=== PATIENT | female | born 1970 | race Caucasian/White ===

== ENCOUNTER 2018-02-18 20:10 | Emergency (ER) | payer OTHER ==
--- NOTE | 2018-02-18 21:04 | EDM.PDOC ---
ED HPI GENERAL MEDICAL PROBLEM - General Chief Complaint: Respiratory Problem Stated Complaint: WEAKNESS Time Seen by Provider: 02/18/18 21:00 Source of Information: Reports: Patient History Limitations: Reports: No Limitations - History of Present Illness INITIAL COMMENTS - FREE TEXT/NARRATIVE: Patient presents with cough x 6 weeks productive of green sputum. Has not sought medical attention until today. Complains of mid back pain and generalized weakness x several days. Denies SOB. Duration: Week(s): (6) - Related Data Allergies Allergy/AdvReac Type Severity Reaction Status Date / Time No Known Allergies Allergy Verified 02/18/18 20:46 Home Meds: Home Meds Azithromycin [Zithromax] 250 mg PO DAILY #4 tab 02/18/18 [Rx] Codeine/guaiFENesin [guaiFENesin-Codeine Syrup] 10 ml PO Q4H PRN #240 ml [Rx] Past Medical History - Past Health History Medical/Surgical History: Denies Medical/Surgical History Social & Family History - Tobacco Use Smoking Status *Q: Never Smoker ED ROS GENERAL - Review of Systems Review Of Systems: See Below Constitutional: Reports: Chills HEENT: Reports: No Symptoms Respiratory: Reports: Cough Cardiovascular: Reports: No Symptoms Endocrine: Reports: No Symptoms GI/Abdominal: Reports: No Symptoms : Reports: No Symptoms Musculoskeletal: Reports: Back Pain (mid) Skin: Reports: No Symptoms Neurological: Reports: Headache (sharp left sided head pain when lays down at night, no headache at this time) Psychiatric: Reports: No Symptoms Hematologic/Lymphatic: Reports: No Symptoms Immunologic: Reports: No Symptoms ED EXAM, GENERAL - Physical Exam Exam: See Below Exam Limited By: No Limitations General Appearance: Alert, WD/WN, No Apparent Distress Ears: Normal External Exam, Normal Canal, Normal TMs Nose: Normal Inspection Throat/Mouth: Normal Inspection, No Airway Compromise Head: Atraumatic, Normocephalic Neck: Supple, Full Range of Motion Respiratory/Chest: No Respiratory Distress, Lungs Clear, Normal Breath Sounds Cardiovascular: Regular Rate, Rhythm, No Murmur Back Exam: Vertebral Tenderness (moderate mid thoracic vertebral tenderness) Neurological: Alert, No Motor/Sensory Deficits Psychiatric: Normal Affect, Normal Mood Skin Exam: Warm, Dry, Intact Course - Vital Signs Last Recorded V/S: Last Vital Signs Temp 36.5 C 02/18/18 20:20 Pulse 71 02/18/18 20:20 Resp 18 02/18/18 20:20 BP 151/89 H 02/18/18 20:20 Pulse Ox 94 L 02/18/18 20:20 - Orders/Labs/Meds Orders: Active Orders 24 hr Category Date Time Status CXR [Chest 2V] [CR] Stat Exams 02/18/18 21:00 Taken - Radiology Interpretation Free Text/Narrative:: CXR: NAD Departure - Departure Time of Disposition: 21:52 Disposition: Home, Self-Care 01 Condition: Good Clinical Impression: Bronchitis, Mid-back pain, acute - Discharge Information *PRESCRIPTION DRUG MONITORING PROGRAM REVIEWED*: No *COPY OF PRESCRIPTION DRUG MONITORING REPORT IN PATIENT EVA: Not Applicable Prescriptions: Azithromycin [Zithromax] 250 mg PO DAILY #4 tab Codeine/guaiFENesin [guaiFENesin-Codeine Syrup] 10 ml PO Q4H PRN #240 ml PRN Reason: Cough Instructions: Acute Bronchitis, Adult, [id number], Back Pain, Adult, Easy-to- Read Referrals: PCP,Not In Area [Primary Care Provider] - Forms: ED Department Discharge Additional Instructions: Fill prescriptions for Zithromax and Robitussin AC and take as directed. Take OTC Ibuprofen as needed for back pain. Rest, drink plenty of fluids. Follow up with your primary physician in 2-3 days. Return to the ER as needed. - My Orders Last 24 Hours: My Active Orders 02/18/18 21:00 CXR [Chest 2V] [CR] Stat - Assessment/Plan Last 24 Hours: My Active Orders 02/18/18 21:00 CXR [Chest 2V] [CR] Stat
[2018-02-18] MEDS ORDERED: Azithromycin 500 MG Tab PO ONE (21:54)
--- NOTE | 2018-02-20 08:28 | CR ---
INDICATION: Cough. CHEST: Two PA views and a lateral view of the chest were obtained 02/18/2018 - no comparisons are available. The diaphragm leaves appear to be slightly flattened with prominent AP diameter and mild hyperaeration, suggesting the possibility of COPD - correlate clinically. A small to moderate sized fixed hiatal hernia is suggested. The heart is normal in size and shape. The aorta is somewhat tortuous with suggestion of minimal calcification in the arch. A definite active infiltrate or effusion was not identified. However, there is noted bronchial wall cuffing at the lung bases of mild degree, which could be on the basis of active peribronchial disease and should be correlated clinically. The bony structures appear to be intact and unremarkable, except to note suggestion of a very minimal dextroconcave scoliosis at the thoracolumbar spine. IMPRESSION: 1. Bronchial wall cuffing, which may be on the basis of active peribronchial disease - correlate clinically. No other finding to suggest an acute process is identified. 2. Possible COPD - correlate clinically. 3. Mild ASD aorta. MTDD
== END 2018-02-18 22:05 | disposition home or self-care (01) ==
LOC: FB.ED 20:10
DX: J40 Bronchitis, not specified as acute or chronic (principal); M54.9 Dorsalgia, unspecified
CPT/HCPCS: 71046; 99283; A9270-GY

== ENCOUNTER 2021-02-25 20:16 | Emergency (ER) | payer OTHER ==
--- NOTE | 2021-02-25 21:03 | EDM.PDOC ---
ED HPI GENERAL MEDICAL PROBLEM - General Stated Complaint: RIB POPPED OUT OF PLACE Time Seen by Provider: 02/25/21 20:25 Source of Information: Reports: Patient History Limitations: Reports: No Limitations - History of Present Illness INITIAL COMMENTS - FREE TEXT/NARRATIVE: pt c/o left lower rib pain, tells me a bout a week ago she felt a pop at left lower ribs / anterior side and since then she has been having sever pain with movement or pressure, denies cough fever , chills, SOB, or Hx of fall or trauma. - Related Data Allergies Allergy/AdvReac Type Severity Reaction Status Date / Time No Known Allergies Allergy Verified 02/25/21 21:00 Home Meds: Home Meds NK [No Known Home Meds] 02/25/21 [History] Past Medical History - Past Health History Medical/Surgical History: Denies Medical/Surgical History - Infectious Disease History Infectious Disease History: Reports: MRSA - Past Surgical History Female Surgical History: Reports: Section Social & Family History - Caffeine Use Caffeine Use: Reports: None ED ROS GENERAL - Review of Systems Review Of Systems: See Below Constitutional: Reports: No Symptoms HEENT: Reports: No Symptoms Respiratory: Reports: No Symptoms Cardiovascular: Reports: No Symptoms GI/Abdominal: Reports: No Symptoms Musculoskeletal: Reports: No Symptoms Skin: Reports: No Symptoms ED EXAM, GENERAL - Physical Exam Exam: See Below Exam Limited By: No Limitations General Appearance: No Apparent Distress Respiratory/Chest: No Respiratory Distress, Lungs Clear, Normal Breath Sounds, Other (tender over the left lower ribs/ anterior side. ) Cardiovascular: Normal Peripheral Pulses, Regular Rate, Rhythm GI/Abdominal: Normal Bowel Sounds, Soft, Non-Tender. No: Hepatomegaly, Splenomegaly Back Exam: Normal Inspection, Full Range of Motion Course - Vital Signs Text/Narrative:: did not see acute injuries or any lytic lesion on rib view , radiology report is still pending. pt likely has costochondritis, supportive mng was recommended along with OTC antiinflammatories. she is to follow with PCP in 1 week if continued pain. Last Recorded V/S: Last Vital Signs Temp 36.7 C 02/25/21 20:30 Pulse 86 02/25/21 20:30 Resp 18 02/25/21 20:30 BP 154/80 H 02/25/21 20:30 Pulse Ox 98 02/25/21 20:30 - Orders/Labs/Meds Orders: Active Orders 24 hr Category Date Time Status Ribs 2V w Chest Lt [CR] Stat Exams 02/25/21 21:03 Ordered Meds: Medications Discontinued Medications Generic Name Dose Route Start Last Admin Trade Name Markus PRN Reason Stop Dose Admin Ketorolac Tromethamine 60 mg 02/25/21 21:03 02/25/21 21:13 Ketorolac 30 Mg/Ml Sdv IM 02/25/21 21:04 60 mg ONETIME ONE Administration Departure - Departure Time of Disposition: 21:46 Disposition: Home, Self-Care 01 Clinical Impression: Costochondritis - Discharge Information Referrals: PCP,None [Primary Care Provider] - Sepsis Event Note (ED) - Focused Exam Vital Signs: Vital Signs Temp Pulse Resp BP Pulse Ox 02/25/21 20:30 36.7 C 86 18 154/80 H 98 - My Orders Last 24 Hours: My Active Orders 02/25/21 21:03 Ribs 2V w Chest Lt [CR] Stat - Assessment/Plan Last 24 Hours: My Active Orders 02/25/21 21:03 Ribs 2V w Chest Lt [CR] Stat
[2021-02-25] MEDS: Ketorolac 30 MG/ML SDV IM ONE (21:13)
--- NOTE | 2021-02-28 11:26 | CR ---
LEFT RIBS WITH CHEST INDICATION: Left rib pain, no history of trauma. FINDINGS: PA view of the chest with two additional views of the left ribs were obtained 02/25/21 and compared with PA chest from 02/18/18. The heart remains within normal limits in size, but may be slightly increased in size compared with the previous examination. There is now noted a large fixed hiatal hernia - significantly increased in size compared with the previous examination. Multiple metallic artifacts are noted on apparel. The aorta is tortuous with calcification in the arch. A definite active infiltrate, effusion, contusion or pneumothorax was not identified with pulmonary markings similar to the previous examination. BB paz the site of pain at the lower ribs on the left. No displaced fracture site or other definite bony abnormality was identified. If symptoms persist - if occult bony abnormality is suspected clinically, reexamination in 10-14 days or more advanced imaging such as CT, or nuclear bone imaging, may be of further diagnostic benefit. MTDD
== END 2021-02-25 22:16 | disposition home or self-care (01) ==
LOC: FB.ED 20:16
DX: M94.0 Chondrocostal junction syndrome [Tietze] (principal)
CPT/HCPCS: 71101-LT; 96372; 99283-25; J1885